=== PATIENT | male | born 1950 | race Caucasian/White ===

== ENCOUNTER 2019-01-09 14:54 | Inpatient (IN) | payer BC, MEDICARE ==
[~2019-01-09] VITALS: Ht 182.9 cm; Wt 87.6 kg
[2019-01-09] MEDS ORDERED: SODIUM CHLORIDE 0.9% 1,000 ML IV ONE (18:02)
[2019-01-09 18:47] LABS: BASOPHILS % 0.8 % (0.0-2.0); HEMOGLOBIN. 10.9 g/dL (14.0-18.0); LYMPHOCYTES % 8.8 % (20.0-50.0); MEAN CORPUSCULAR HEMOGLOBIN 31.7 pg (28.0-32.0); MEAN CORPUSCULAR VOLUME 95.5 fL (80.0-94.0); MONOCYTES % 7.8 % (2.0-8.0); NEUTROPHILS % 82.6 % (40.0-76.0); PLATELET 221 x1000/uL (130-400); RED BLOOD CELL COUNT 3.46 mill/uL (4.7-6.1); RED CELL DISTRIBUTION WIDTH 15.8 % (11.6-14.6)
[2019-01-09 18:53] LABS: CHLORIDE 112 mEq/L (98-107)
[2019-01-09] MEDS ORDERED: HYDROCODONE/ACETAMINOPHEN 5/325MG TABLET PO ONE (19:00)
[2019-01-09 19:01] LABS: CREATINE KINASE 475 IU/L (39-308)
[2019-01-09 19:04] LABS: CREATINE KINASE MB FRACTION 6.2 ng/mL (0.5-3.6)
[2019-01-09] MEDS ORDERED: DEXTROSE 50% WATER 50ML SYRINGE IV ONE (20:45)
[2019-01-09] MEDS ORDERED: ONDANSETRON HCL 4MG/2ML INJ IV PRN (22:45)
[2019-01-09] MEDS ORDERED: KETOROLAC 30MG/ML VIAL IV PRN (22:45)
[2019-01-09] MEDS ORDERED: DIPHENHYDRAMINE 50MG/ML VIAL IV PRN (22:45)
[2019-01-09] MEDS ORDERED: GUAIFENESIN 200MG/10ML SUGAR FREE UDC PO PRN (22:45)
[2019-01-09] MEDS ORDERED: IBUPROFEN 400MG TABLET PO PRN (22:45)
[2019-01-09] MEDS ORDERED: ACETAMINOPHEN 325MG TABLET PO PRN (22:45)
[2019-01-09] MEDS ORDERED: MAGNESIUM/ALUMINUM HYDROXIDE/SIMETHICONE 30ML UDC PO PRN (22:45)
[2019-01-09] MEDS ORDERED: HYDROCODONE/ACETAMINOPHEN 5/325MG TABLET PO PRN (22:45)
[2019-01-09] MEDS ORDERED: CLONIDINE 0.1MG TABLET PO PRN (22:45)
[2019-01-09 23:15] VITALS: BP 116/68
[2019-01-09 23:55] LABS: PROSTRATE SPECIFIC AG TOTAL 7.72 ng/mL (0.0-4.0)
[2019-01-09 23:56] LABS: CARCINO EMBRYONIC ANTIGEN 36.7 ng/ml
[2019-01-10] MEDS ORDERED: DEXTROSE 50% WATER 50ML SYRINGE IV PRN (00:45)
[2019-01-10] MEDS: SODIUM CHLORIDE 0.9% INJ 3ML FLUSH IVF SCH ×3 (06:00→22:52)
[2019-01-10] MEDS: BLOOD SUGAR DIAGNOSTIC STRIP TEST SCH ×4 (07:05→21:21)
[2019-01-10] MEDS: INSULIN LISPRO 100 UNITS/ML SUBCUT SCH ×4 (07:50→21:00)
[2019-01-10] MEDS ORDERED: ENOXAPARIN 40MG/0.4ML SYR SUBCUT SCH ×2 (09:00→10:00)
[2019-01-10] MEDS: METOLAZONE 5MG TABLET PO SCH (09:28)
[2019-01-10 20:00] VITALS: BP 146/86
[2019-01-10] MEDS ORDERED: ENOXAPARIN 80MG/0.8ML SYR SUBCUT SCH (21:00)
[2019-01-11] VITALS: BP 101/68
[2019-01-11 04:00] VITALS: BP 126/83
[2019-01-11] MEDS: SODIUM CHLORIDE 0.9% INJ 3ML FLUSH IVF SCH ×2 (06:08→20:42)
[2019-01-11] MEDS: BLOOD SUGAR DIAGNOSTIC STRIP TEST SCH ×4 (06:45→21:00)
[2019-01-11 07:12] LABS: BASOPHILS % 0.3 % (0.0-2.0); EOSINOPHILS % 0.6 % (0.0-5.0); HEMATOCRIT. 32.6 % (42.0-52.0); HEMOGLOBIN. 10.8 g/dL (14.0-18.0); LYMPHOCYTES % 14.8 % (20.0-50.0); MEAN CORPUSCULAR VOLUME 96.9 fL (80.0-94.0); MONOCYTES % 9.8 % (2.0-8.0); NEUTROPHILS % 74.5 % (40.0-76.0); PLATELET 188 x1000/uL (130-400); RED BLOOD CELL COUNT 3.36 mill/uL (4.7-6.1); RED CELL DISTRIBUTION WIDTH 16.4 % (11.6-14.6)
[2019-01-11 07:26] LABS: CHLORIDE 108 mEq/L (98-107)
[2019-01-11 07:46] LABS: PHOSPHORUS 1.8 mg/dL (2.5-4.9)
[2019-01-11] MEDS: INSULIN LISPRO 100 UNITS/ML SUBCUT SCH ×4 (07:50→21:00)
[2019-01-11 08:00] VITALS: BP 99/65
[2019-01-11] MEDS: METOLAZONE 5MG TABLET PO SCH (08:30)
[2019-01-11 12:00] VITALS: BP 110/76
[2019-01-11 16:00] VITALS: BP 108/69
[2019-01-11 20:00] VITALS: BP 105/75
[2019-01-12] VITALS: BP 123/73
[2019-01-12 04:00] VITALS: BP 99/73
[2019-01-12] MEDS: SODIUM CHLORIDE 0.9% INJ 3ML FLUSH IVF SCH ×2 (06:08→13:53)
[2019-01-12] MEDS: BLOOD SUGAR DIAGNOSTIC STRIP TEST SCH ×4 (07:39→21:00)
[2019-01-12] MEDS: INSULIN LISPRO 100 UNITS/ML SUBCUT SCH ×4 (07:40→21:00)
[2019-01-12 08:00] VITALS: BP 128/80
[2019-01-12] MEDS: METOLAZONE 5MG TABLET PO SCH (09:35)
[2019-01-12 12:00] VITALS: BP 118/72
[2019-01-12] MEDS ORDERED: SODIUM PHOS,M-BASIC-D-BASIC 15 MM in DEXT 5% WATER 245 ML IV NR (13:00)
[2019-01-12 16:00] VITALS: BP 121/76
[2019-01-12 20:00] VITALS: BP 120/75
[2019-01-13] VITALS: BP 124/76
[2019-01-13 04:00] VITALS: BP 126/78
[2019-01-13] MEDS: SODIUM CHLORIDE 0.9% INJ 3ML FLUSH IVF SCH ×3 (04:36→14:00)
[2019-01-13] MEDS: BLOOD SUGAR DIAGNOSTIC STRIP TEST SCH ×4 (07:45→21:00)
[2019-01-13] MEDS: INSULIN LISPRO 100 UNITS/ML SUBCUT SCH ×4 (07:50→21:00)
[2019-01-13 08:00] VITALS: BP 104/74
[2019-01-13] MEDS: METOLAZONE 5MG TABLET PO SCH (09:18)
[2019-01-13 12:00] VITALS: BP 115/79
[2019-01-13 16:00] VITALS: BP 137/80
[2019-01-13 16:01] LABS: BASOPHILS % 0.4 % (0.0-2.0); EOSINOPHILS % 1.2 % (0.0-5.0); HEMATOCRIT. 30.9 % (42.0-52.0); HEMOGLOBIN. 10.4 g/dL (14.0-18.0); LYMPHOCYTES % 14.1 % (20.0-50.0); MEAN CORPUSCULAR VOLUME 95.3 fL (80.0-94.0); MEAN PLATELET VOLUME 6.8 fl (7.4-10.4); NEUTROPHILS % 73.3 % (40.0-76.0); PLATELET 232 x1000/uL (130-400); RED BLOOD CELL COUNT 3.24 mill/uL (4.7-6.1); RED CELL DISTRIBUTION WIDTH 15.7 % (11.6-14.6)
[2019-01-13 16:08] LABS: CHLORIDE 103 mEq/L (98-107)
[2019-01-13 16:09] LABS: INR 1.3; PARTIAL THROMBOPLASTIN TIME 33.1 sec (23.4-31.0); PROTHROMBIN TIME 13.6 sec (9.6-11.0)
[2019-01-13] MEDS ORDERED: LIDOCAINE HCL 1% 20ML VIAL (Pyxis) INJ ONE (17:33)
[2019-01-13] MEDS ORDERED: SODIUM BICARBONATE 4% (2.4MEQ) 5ML VIAL IV ONE (17:33)
[2019-01-13 20:00] VITALS: BP 105/61
[2019-01-13] MEDS: ENOXAPARIN 100MG/ML SYR SUBCUT SCH (23:13)
[2019-01-14] VITALS: BP 97/58
[2019-01-14 04:00] VITALS: BP 100/66
[2019-01-14] MEDS: BLOOD SUGAR DIAGNOSTIC STRIP TEST SCH ×2 (07:20→21:00)
[2019-01-14 08:00] VITALS: BP 107/70
[2019-01-14] MEDS: ENOXAPARIN 100MG/ML SYR SUBCUT SCH (11:02)
[2019-01-14 12:00] VITALS: BP 102/68
[2019-01-14] MEDS: INSULIN LISPRO 100 UNITS/ML SUBCUT SCH ×2 (12:50→21:00)
[2019-01-14 17:20] VITALS: BP 116/74
[2019-01-14 20:00] VITALS: BP 140/60
[2019-01-14] MEDS: SODIUM CHLORIDE 0.9% INJ 3ML FLUSH IVF SCH (22:00)
[2019-01-15] VITALS (7 sets, daily range): BP systolic 102–112; BP diastolic 60–66
[2019-01-15] MEDS: METOLAZONE 5MG TABLET PO SCH (09:02)
[2019-01-15] MEDS: BLOOD SUGAR DIAGNOSTIC STRIP TEST SCH (12:25)
[2019-01-15] MEDS ORDERED: LIDOCAINE HCL 1% 20ML VIAL (Pyxis) INJ ONE (12:51)
[2019-01-15] MEDS ORDERED: SODIUM BICARBONATE 4% (2.4MEQ) 5ML VIAL IV ONE (12:51)
[2019-01-15] MEDS: INSULIN LISPRO 100 UNITS/ML SUBCUT SCH (14:19)
[2019-01-15] MEDS ORDERED: APIXABAN 5 MG TABLET PO SCH (17:00)
== END 2019-01-15 16:20 | DRG 843 ==
LOC: ER 14:59 → EDBEDREQ 20:46 → EDBEDREQSVC 20:46 → EDBEDREQTM 20:46 → 6EST 21:58 → EDBEDREQTM 21:59 → EDBEDREQSVC 21:59 → ENRESERV 22:09
PROVIDERS: ADMIT Internal Medicine; ATTEND Internal Medicine
PROC: 0W9G3ZZ Drainage of Peritoneal Cavity, Percutaneous Approach (ICD-10-PCS; principal; 2019-01-13)
PROC: 0W9G3ZZ Drainage of Peritoneal Cavity, Percutaneous Approach (ICD-10-PCS; 2019-01-13)
DX: C79.9 Secondary malignant neoplasm of unspecified site (principal); E43 Unspecified severe protein-calorie malnutrition; R18.8 Other ascites; I82.409 Acute embolism and thrombosis of unspecified deep veins of unspecified lower extremity; R62.7 Adult failure to thrive; E11.9 Type 2 diabetes mellitus without complications; N50.89 Other specified disorders of the male genital organs; Z80.1 Family history of malignant neoplasm of trachea, bronchus and lung; Z68.26 Body mass index [BMI] 26.0-26.9, adult
CPT/HCPCS: 36415; 49083; 71045; 72170; 74176; 76870; 80048; 82378; 82550; 82553; 82962; 83735; 83880; 84100; 84153; 84484; 93005; 93970; 93976; 96374; 97162; 99285; J1650; J1815; J3490; J7030; J7060; G0103

== ENCOUNTER 2019-03-06 14:06 | Inpatient (IN) | payer MEDICARE ==
[~2019-03-06] VITALS: Ht 182.9 cm; Wt 105.2 kg
[2019-03-06 16:16] LABS: EOSINOPHILS % 0.3 % (0.0-5.0); HEMATOCRIT. 36.7 % (42.0-52.0); HEMOGLOBIN. 12.1 g/dL (14.0-18.0); LYMPHOCYTES % 10.1 % (20.0-50.0); MEAN CORPUSCULAR HEMOGLOBIN 31.2 pg (28.0-32.0); MEAN CORPUSCULAR VOLUME 94.6 fL (80.0-94.0); MEAN PLATELET VOLUME 6.4 fl (7.4-10.4); MONOCYTES % 8.1 % (2.0-8.0); NEUTROPHILS % 80.5 % (40.0-76.0); PLATELET 257 x1000/uL (130-400); RED BLOOD CELL COUNT 3.88 mill/uL (4.7-6.1); RED CELL DISTRIBUTION WIDTH 15.3 % (11.6-14.6)
[2019-03-06 16:19] LABS: CHLORIDE 105 mEq/L (98-107)
[2019-03-06 16:23] LABS: INR 1.4; PARTIAL THROMBOPLASTIN TIME 33.4 sec (23.4-31.0)
[2019-03-06] MEDS ORDERED: IPRATROPIUM/ALBUTEROL 0.5-3(2.5)MG/3ML NEB NEB PRN (19:30)
[2019-03-06] MEDS ORDERED: ONDANSETRON HCL 4MG/2ML INJ IV PRN (19:30)
[2019-03-06] MEDS ORDERED: ACETAMINOPHEN 325MG TABLET PO PRN (19:30)
[2019-03-06] MEDS ORDERED: DIPHENHYDRAMINE 50MG/ML VIAL IV PRN (19:30)
[2019-03-06 21:30] VITALS: BP 107/75
[2019-03-07] VITALS: BP_SYST 107; BP_SYST 114; BP_DIAS 75; BP_DIAS 78
[2019-03-07] MEDS: SODIUM CHLORIDE 0.9% INJ 3ML FLUSH IVF SCH ×4 (03:59→21:27)
[2019-03-07 04:00] VITALS: BP 114/76
[2019-03-07 08:00] VITALS: BP 107/69
[2019-03-07] MEDS ORDERED: IBUP-2077 PO (08:13)
[2019-03-07] MEDS ORDERED: GUAI-858 PO (08:13)
[2019-03-07] MEDS ORDERED: MAG-4 PO (08:13)
[2019-03-07] MEDS ORDERED: METO10TA8 PO (08:13)
[2019-03-07] MEDS ORDERED: ONDA4TAB11 PO (08:13)
[2019-03-07] MEDS ORDERED: CLON0.1T14 PO (08:13)
[2019-03-07] MEDS ORDERED: INFLUENZA VIRUS VACCINE(AFLURIA) 0.5ML SYR IM ONE (10:00)
[2019-03-07] MEDS ORDERED: SODIUM BICARBONATE 4% (2.4MEQ) 5ML VIAL IV ONE (10:06)
[2019-03-07] MEDS ORDERED: LIDOCAINE HCL 1% 20ML VIAL (Pyxis) INJ ONE (10:06)
[2019-03-07 12:00] VITALS: BP 94/63
[2019-03-07 16:00] VITALS: BP 102/63
[2019-03-07] MEDS ORDERED: METOLAZONE 10MG TABLET PO NR ×2 (18:00→20:00)
[2019-03-07 20:00] VITALS: BP 93/61
[2019-03-08] VITALS: BP 97/65
[2019-03-08 04:00] VITALS: BP 100/68
[2019-03-08] MEDS: SODIUM CHLORIDE 0.9% INJ 3ML FLUSH IVF SCH ×3 (05:27→23:11)
[2019-03-08 08:00] VITALS: BP 90/66
[2019-03-08] MEDS: FUROSEMIDE 40MG/4ML VIAL IVP SCH (08:24)
[2019-03-08 12:00] VITALS: BP 89/65
[2019-03-08] MEDS: APIXABAN 5 MG TABLET PO SCH ×2 (13:04→20:33)
[2019-03-08] MEDS ORDERED: METOLAZONE 10MG TABLET PO SCH (14:00)
[2019-03-08 16:00] VITALS: BP 117/69
[2019-03-08 20:00] VITALS: BP 107/73
[2019-03-09] VITALS: BP 100/67
[2019-03-09 04:00] VITALS: BP 101/66
[2019-03-09] MEDS: SODIUM CHLORIDE 0.9% INJ 3ML FLUSH IVF SCH ×3 (05:02→21:26)
[2019-03-09 06:30] LABS: CHLORIDE 102 mEq/L (98-107)
[2019-03-09 06:38] LABS: PHOSPHORUS 2.3 mg/dL (2.5-4.9)
[2019-03-09 08:00] VITALS: BP 89/59
[2019-03-09] MEDS: APIXABAN 5 MG TABLET PO SCH ×2 (08:34→20:13)
[2019-03-09] MEDS: FUROSEMIDE 40MG/4ML VIAL IVP SCH (08:34)
[2019-03-09 12:00] VITALS: BP 90/60
[2019-03-09] MEDS ORDERED: MAGNESIUM 2 G PREMIX 50 ML IV NR (12:00)
[2019-03-09] MEDS ORDERED: POTASSIUM PHOS,M-BASIC-D-BASIC 20 MMOL in DEXT 5% WATER 243.3333 ML IV NR (13:00)
[2019-03-09] MEDS ORDERED: TRAMADOL 50MG TABLET PO PRN (14:30)
[2019-03-09 16:00] VITALS: BP 99/63
[2019-03-09 20:00] VITALS: BP 97/62
[2019-03-10] VITALS: BP 120/69
[2019-03-10 04:00] VITALS: BP 103/64
[2019-03-10 08:00] VITALS: BP 92/53
[2019-03-10] MEDS ORDERED: FUROSEMIDE 40MG TABLET PO SCH (09:15)
[2019-03-10] MEDS: APIXABAN 5 MG TABLET PO SCH (10:06)
[2019-03-10 12:00] VITALS: BP 105/54
[2019-03-10 13:54] VITALS: BP 105/54
[2019-03-10] MEDS ORDERED: TOPUD PO (14:08)
[2019-03-10] MEDS ORDERED: APIX5TAB PO (14:10)
[2019-03-10] MEDS ORDERED: FURO40TA5 PO (14:12)
[2019-03-10] MEDS ORDERED: DIPH25CA83 PO (14:12)
[2019-03-10] MEDS ORDERED: IPRA3AMP31 IH (14:12)
[2019-03-10] MEDS ORDERED: TRAM50TA3 PO (14:13)
[2019-03-10] MEDS ORDERED: ONDA4TAB50 PO (14:13)
[2019-03-10] MEDS: SODIUM CHLORIDE 0.9% INJ 3ML FLUSH IVF SCH (14:14)
== END 2019-03-10 14:45 | DRG 947 ==
LOC: ER 14:06 → 6EST 17:45 → EDBEDREQ 18:03 → EDBEDREQSVC 18:03 → ENRESERV 20:09
PROVIDERS: ADMIT Internal Medicine; ATTEND Internal Medicine
PROC: 0W9G3ZZ Drainage of Peritoneal Cavity, Percutaneous Approach (ICD-10-PCS; principal; 2019-03-07)
DX: R18.8 Other ascites (principal); L89.153 Pressure ulcer of sacral region, stage 3; E43 Unspecified severe protein-calorie malnutrition; C79.9 Secondary malignant neoplasm of unspecified site; E11.9 Type 2 diabetes mellitus without complications; R62.7 Adult failure to thrive; D72.829 Elevated white blood cell count, unspecified; K74.60 Unspecified cirrhosis of liver; Z85.9 Personal history of malignant neoplasm, unspecified; Z86.718 Personal history of other venous thrombosis and embolism; Z68.31 Body mass index [BMI] 31.0-31.9, adult; Z79.899 Other long term (current) drug therapy
CPT/HCPCS: 36415; 49083; 71045; 80048; 83735; 83880; 84100; 84134; 84484; 93005; 93970; 99285; J1940; J3475; J3490; J7060

== ENCOUNTER 2019-03-24 14:15 | Inpatient (IN) | payer MEDICARE ==
[~2019-03-24] VITALS: Ht 177.8 cm; Wt 57.6 kg
[~2019-03-24 14:15] MED LIST: APIX5TAB PO; DIPH25CA83 PO; FURO40TA5 PO; IPRA3AMP31 IH; ONDA4TAB50 PO; TOPUD PO; TRAM50TA3 PO
[2019-03-24] MEDS ORDERED: VANCOMYCIN 1 G PREMIX 200 ML IV ONE (15:15)
[2019-03-24] MEDS ORDERED: PIPERACILLIN/TAZ 3.375G PREMIX 50 ML IV ONE (15:15)
[2019-03-24] MEDS ORDERED: SODIUM CHLORIDE 0.9% 1000ML BAG (SEPSIS BOLUS) IV ONE ×2 (15:15→16:45)
[2019-03-24] MEDS ORDERED: LIDOCAINE HCL/EPINEPHRINE 1%-EPI 1:100,000 30 ML VIAL INFIL ONE (16:15)
[2019-03-24] MEDS ORDERED: LIDOCAINE HCL/EPINEPHRINE 1%-EPI 1:100,000 20 ML VIAL INFIL NR (16:30)
[2019-03-24 18:32] LABS: CLARITY URINE TURBID (CLEAR); COLOR URINE DARK YELLOW (YELLOW); KETONES URINE NEGATIVE (NEGATIVE); LEUKOCYTE ESTERASE URINE 2+ (NEGATIVE); NITRITE URINE POSITIVE (NEGATIVE); OCCULT BLOOD URINE 3+ (NEGATIVE); PROTEIN URINE 1+ (NEGATIVE)
[2019-03-24 18:32] LABS: INR 2.8
[2019-03-24 18:34] LABS: CHLORIDE 102 mEq/L (98-107)
[2019-03-24 18:45] LABS: PROTHROMBIN TIME 27.9 sec (9.6-11.0)
[2019-03-24] MEDS ORDERED: DEXTROSE 50% WATER 50ML SYRINGE IV ONE ×2 (19:08→19:15)
[2019-03-24] MEDS ORDERED: NOREPINEPHRINE 4MG/250ML PMX 250 ML IV ONE (19:45)
[2019-03-24 20:23] LABS: BASOPHILS % 0.2 % (0.0-2.0); EOSINOPHILS % 2.3 % (0.0-5.0); HEMATOCRIT. 30.6 % (42.0-52.0); HEMOGLOBIN. 9.8 g/dL (14.0-18.0); MEAN CORPUSCULAR HEMOGLOBIN 30.3 pg (28.0-32.0); MEAN CORPUSCULAR VOLUME 94.4 fL (80.0-94.0); MEAN PLATELET VOLUME 9.4 fl (7.4-10.4); MONOCYTES % 5.8 % (2.0-8.0); NEUTROPHILS % 83.7 % (40.0-76.0); RED BLOOD CELL COUNT 3.24 mill/uL (4.7-6.1); RED CELL DISTRIBUTION WIDTH 15.9 % (11.6-14.6)
[2019-03-25] MEDS ORDERED: MORPHINE SULFATE 2 MG/ML CPJ (NOT FOR IM USE) IV ONE (00:15)
[2019-03-25] MEDS ORDERED: NOREPINEPHRINE 4MG/250ML PMX 250 ML IV ONE (01:00)
[2019-03-25] MEDS: DEXT 5%/0.45% NACL 1000ML 1,000 ML IV SCH ×2 (01:50→09:51)
[2019-03-25] MEDS ORDERED: ONDANSETRON HCL 4MG/2ML INJ IV PRN (02:00)
[2019-03-25] MEDS ORDERED: ACETAMINOPHEN 650MG SUPP PR PRN (02:00)
[2019-03-25] MEDS ORDERED: IPRATROPIUM/ALBUTEROL 0.5-3(2.5)MG/3ML NEB HHN PRN (02:00)
[2019-03-25] MEDS ORDERED: CEFEPIME 1,000 MG in DEXTROSE 5% WATER 50 ML IV NR ×2 (03:15→17:04)
[2019-03-25] MEDS: NOREPINEPHRINE 4MG/250ML PMX 250 ML IV PRN ×2 (08:45→22:35)
[2019-03-26] VITALS (46 sets, daily range): BP systolic 72–117; BP diastolic 46–80
[2019-03-26] MEDS ORDERED: CEFEPIME 1,000 MG in DEXTROSE 5% WATER 50 ML IV SCH (04:00)
[2019-03-26] MEDS: MORPHINE SULFATE 2 MG/ML CPJ (NOT FOR IM USE) IV PRN (05:54)
[2019-03-26] MEDS: CEFEPIME 1,000 MG in DEXTROSE 5% WATER 50 ML IV SCH (07:04)
[2019-03-26] MEDS ORDERED: NOREPINEPHRINE 4 MG in DEXT 5% WATER 246 ML IV PRN (11:00)
[2019-03-26] MEDS ORDERED: NOREPINEPHRINE 4MG/250ML PMX 250 ML IV ONE (11:21)
[2019-03-26] MEDS: DEXT 5%/0.45% NACL 1000ML 1,000 ML IV SCH (18:13)
[2019-03-26] MEDS: NOREPINEPHRINE 4 MG in DEXT 5% WATER 246 ML IV PRN ×2 (18:16→20:55)
[2019-03-26] MEDS: BLOOD SUGAR DIAGNOSTIC STRIP TEST SCH (19:15)
[2019-03-26] MEDS ORDERED: DEXTROSE 50% WATER 50ML SYRINGE IV PRN (19:15)
[2019-03-27] VITALS (99 sets, daily range): BP systolic 68–123; BP diastolic 52–87
[2019-03-27] MEDS: BLOOD SUGAR DIAGNOSTIC STRIP TEST SCH ×5 (00:16→23:25)
[2019-03-27] MEDS: NOREPINEPHRINE 32 MG in DEXT 5% WATER 468 ML IV PRN ×2 (02:56→12:51)
[2019-03-27] MEDS: DEXT 5%/0.45% NACL 1000ML 1,000 ML IV SCH ×4 (02:57→12:47)
[2019-03-27] MEDS: MORPHINE SULFATE 2 MG/ML CPJ (NOT FOR IM USE) IV PRN (03:24)
[2019-03-27 05:21] LABS: BASOPHILS % 0.2 % (0.0-2.0); EOSINOPHILS % 0.5 % (0.0-5.0); HEMATOCRIT. 27.2 % (42.0-52.0); HEMOGLOBIN. 9.2 g/dL (14.0-18.0); LYMPHOCYTES % 7.4 % (20.0-50.0); MEAN CORPUSCULAR HEMOGLOBIN 30.9 pg (28.0-32.0); MEAN CORPUSCULAR VOLUME 91.6 fL (80.0-94.0); MEAN PLATELET VOLUME 8.9 fl (7.4-10.4); NEUTROPHILS % 86.9 % (40.0-76.0); RED BLOOD CELL COUNT 2.97 mill/uL (4.7-6.1); RED CELL DISTRIBUTION WIDTH 16.1 % (11.6-14.6)
[2019-03-27 05:52] LABS: HEPATITIS B SURFACE ANTIGEN NEGATIVE
[2019-03-27] MEDS: CEFEPIME 1,000 MG in DEXTROSE 5% WATER 50 ML IV SCH (07:51)
[2019-03-27] MEDS: PHENYLEPHRINE 80 MG in DEXT 5% WATER 492 ML IV PRN ×3 (08:15→22:38)
[2019-03-27 09:18] LABS: PLATELET 19 x1000/uL (130-400)
[2019-03-27] MEDS ORDERED: SODIUM CHLORIDE 0.9% 1,000 ML IV ONE ×2 (10:00→13:45)
[2019-03-27 10:28] LABS: PLATELET 10 x1000/uL (130-400)
[2019-03-27 10:29] LABS: PLATELET ESTIMATE MARKEDLY DECREASED
[2019-03-27] MEDS ORDERED: DEXTROSE 50% WATER 50ML SYRINGE IV PRN (12:30)
[2019-03-27] MEDS ORDERED: SODIUM CHLORIDE 0.9% 1,000 ML IV NR (14:45)
[2019-03-27] MEDS: DEXT 5%/0.9% NACL 1,000 ML IV SCH (18:06)
[2019-03-27] MEDS: INSULIN LISPRO 100 UNITS/ML SUBCUT SCH ×2 (18:10→23:26)
[2019-03-27] MEDS: IPRATROPIUM BROMIDE (0.02%) 0.5MG/2.5ML NEB HHN SCH (20:53)
[2019-03-28] VITALS (97 sets, daily range): BP systolic 84–105; BP diastolic 19–78
[2019-03-28] MEDS: IPRATROPIUM BROMIDE (0.02%) 0.5MG/2.5ML NEB HHN SCH ×4 (01:16→21:02)
[2019-03-28] MEDS: DEXT 5%/0.9% NACL 1,000 ML IV SCH ×4 (02:10→23:42)
[2019-03-28] MEDS: INSULIN LISPRO 100 UNITS/ML SUBCUT SCH ×4 (05:35→23:41)
[2019-03-28] MEDS: BLOOD SUGAR DIAGNOSTIC STRIP TEST SCH ×4 (05:35→23:14)
[2019-03-28] MEDS: CEFEPIME 1,000 MG in DEXTROSE 5% WATER 50 ML IV SCH (05:36)
[2019-03-28 06:12] LABS: HEMATOCRIT. 29.8 % (42.0-52.0); HEMOGLOBIN. 9.9 g/dL (14.0-18.0); MEAN CORPUSCULAR HEMOGLOBIN 30.5 pg (28.0-32.0); MEAN CORPUSCULAR VOLUME 91.7 fL (80.0-94.0); MEAN PLATELET VOLUME 11.6 fl (7.4-10.4); RED BLOOD CELL COUNT 3.25 mill/uL (4.7-6.1)
[2019-03-28 06:22] LABS: CHLORIDE 103 mEq/L (98-107)
[2019-03-28] MEDS: PHENYLEPHRINE 80 MG in DEXT 5% WATER 492 ML IV PRN ×3 (06:27→22:22)
[2019-03-28] MEDS: NOREPINEPHRINE 32 MG in DEXT 5% WATER 468 ML IV PRN ×2 (06:27→22:22)
[2019-03-28 06:30] LABS: PHOSPHORUS 1.9 mg/dL (2.5-4.9)
[2019-03-28 07:24] LABS: PLATELET 43 x1000/uL (130-400)
[2019-03-28 09:34] LABS: PLATELET ESTIMATE MARKEDLY DECREASED
[2019-03-28] MEDS ORDERED: MAGNESIUM 4 G PREMIX 100 ML IV NR (12:00)
[2019-03-28] MEDS ORDERED: POTASSIUM PHOS,M-BASIC-D-BASIC 30 MMOL in DEXT 5% WATER 500 ML IV NR (12:00)
[2019-03-28] MEDS ORDERED: CALCIUM CHLORIDE 1,000 MG in DEXT 5% WATER 90 ML IV SCH (18:30)
[2019-03-28] MEDS: PANTOPRAZOLE SODIUM 40 MG/VIAL IV SCH (19:25)
[2019-03-29] VITALS (75 sets, daily range): BP systolic 25–157; BP diastolic 15–121
[2019-03-29] MEDS: IPRATROPIUM BROMIDE (0.02%) 0.5MG/2.5ML NEB HHN SCH ×3 (02:10→12:12)
[2019-03-29] MEDS: BLOOD SUGAR DIAGNOSTIC STRIP TEST SCH ×3 (05:31→18:21)
[2019-03-29] MEDS: INSULIN LISPRO 100 UNITS/ML SUBCUT SCH ×3 (05:32→18:31)
[2019-03-29] MEDS: PHENYLEPHRINE 80 MG in DEXT 5% WATER 492 ML IV PRN ×2 (06:20→14:24)
[2019-03-29] MEDS: PANTOPRAZOLE SODIUM 40 MG/VIAL IV SCH (08:26)
[2019-03-29] MEDS: CEFEPIME 1,000 MG in DEXTROSE 5% WATER 50 ML IV SCH (10:32)
[2019-03-29] MEDS: DEXT 5%/0.9% NACL 1,000 ML IV SCH ×2 (11:38→14:02)
[2019-03-29 13:15] LABS: HEMATOCRIT. 28.1 % (42.0-52.0); HEMOGLOBIN. 9.2 g/dL (14.0-18.0); MEAN CORPUSCULAR HEMOGLOBIN 30.3 pg (28.0-32.0); MEAN CORPUSCULAR VOLUME 92.6 fL (80.0-94.0); MEAN PLATELET VOLUME 10.3 fl (7.4-10.4); PLATELET 59 x1000/uL (130-400); RED BLOOD CELL COUNT 3.03 mill/uL (4.7-6.1)
[2019-03-29 13:21] LABS: CHLORIDE 101 mEq/L (98-107)
[2019-03-29 14:00] LABS: PLATELET ESTIMATE DECREASED
[2019-03-29] MEDS ORDERED: MEROPENEM 1,000 MG in SODIUM CHLORIDE 0.9% 100 ML IV SCH (15:30)
[2019-03-29] MEDS: NOREPINEPHRINE 32 MG in DEXT 5% WATER 468 ML IV PRN (18:22)
== END 2019-03-29 22:30 | disposition expired | DRG 871 ==
LOC: ER 15:16 → MICUNO 17:42 → EDBEDREQSVC 17:57 → EDBEDREQ 17:57 → EDBEDREQTM 17:57 → ENRESERV 03-26 16:04
PROVIDERS: ADMIT Internal Medicine; ATTEND Internal Medicine
PROC: 0W9G3ZZ Drainage of Peritoneal Cavity, Percutaneous Approach (ICD-10-PCS; principal; 2019-03-24)
PROC: 02HV33Z Insertion of Infusion Device into Superior Vena Cava, Percutaneous Approach (ICD-10-PCS; 2019-03-24)
PROC: B548ZZA Ultrasonography of Superior Vena Cava, Guidance (ICD-10-PCS; 2019-03-24)
DX: A41.51 Sepsis due to Escherichia coli [E. coli] (principal); R65.21 Severe sepsis with septic shock; E43 Unspecified severe protein-calorie malnutrition; G93.41 Metabolic encephalopathy; N17.9 Acute kidney failure, unspecified; D68.9 Coagulation defect, unspecified; E87.2 Acidosis; K76.6 Portal hypertension; N39.0 Urinary tract infection, site not specified; R18.8 Other ascites; I82.503 Chronic embolism and thrombosis of unspecified deep veins of lower extremity, bilateral; C78.00 Secondary malignant neoplasm of unspecified lung; Z68.1 Body mass index [BMI] 19.9 or less, adult; C80.1 Malignant (primary) neoplasm, unspecified; D69.6 Thrombocytopenia, unspecified; K74.60 Unspecified cirrhosis of liver; K82.8 Other specified diseases of gallbladder; D64.9 Anemia, unspecified; E11.9 Type 2 diabetes mellitus without complications; I50.9 Heart failure, unspecified; K76.0 Fatty (change of) liver, not elsewhere classified; Z66 Do not resuscitate; K72.90 Hepatic failure, unspecified without coma; L89.159 Pressure ulcer of sacral region, unspecified stage; L89.609 Pressure ulcer of unspecified heel, unspecified stage; Z79.899 Other long term (current) drug therapy
CPT/HCPCS: 36415; 71045; 74176; 80048; 80053; 81003; 82140; 82962; 83605; 83735; 84100; 84134; 84145; 84443; 84484; 85025; 86803; 87077; 87186; 87340; 87804; 93005; 93970; 94640; 99291; A6261; C9113; J0692; J1815; J2185; J2270; J2370; J2543; J3370; J3475; J3490; J7030; J7042; J7050; J7060